=== PATIENT | male | born 1945 | race African-American/Black ===

== ENCOUNTER 2021-06-22 21:59 | Emergency (ER) | payer MEDICARE, BC ==
[~2021-06-22] VITALS: Ht 180.3 cm; Wt 88.3 kg
[~2021-06-22 21:59] MED LIST: ASPI-630 PO; GLUC500T10 PO; INDO75CA10 PO; LISI40TA6 PO; MULT-246 PO
--- NOTE | 2021-06-22 22:16 | RAD ---
STUDY: CT head without contrast INDICATION: Code stroke. Unresponsiveness. Right-sided twitching. COMPARISON: None. TECHNIQUE: Axial CT imaging through the head without the use of intravenous contrast. Sagittal and co regine reformats were obtained. One or more of the following individualized dose reduction techniques were utilized for this examinat ion: 1. Automated exposure control 2. Adjustment of the mA and/or kV according to patient size 3. Use of iterative reconstruction technique. FINDINGS: Partially degraded study on account of motion. Taking the above into consideration, no acute intracranial hemorrhage is identified. No large area of salas-white matter differentiation loss. White matter findings which are nonspecific but most frequen tly on account of chronic microvascular ischemic change. No localized mass effect or midline shift. M ild symmetric prominence of the ventricular system favored secondary to parenchymal volume loss. Intr acranial calcific atherosclerosis. Intact calvarium. IMPRESSION: 1. Mildly degraded study on account of patient motion. No acute intracranial hemorrhage is apparent or CT evidence for an acute cortical infarction. 2. Chronic/senescent observations detailed above. FOR INTERNAL CODING PURPOSES Critical result: Findings discussed with MIGUELINA ARAUJO on 06/22/2021 at 10:14 PM. RESULT CODE: (C) Electronically signed by: YODIT LEHMAN MD (06/22/2021 10:14 PM) [facility]
[2021-06-22] MEDS ORDERED: CONTRAST GIVEN. MC PRN (22:30)
[2021-06-22] MEDS ORDERED: IOHEXOL 350 MG/ML 100 ML VIAL. IV ONE (22:30)
--- NOTE | 2021-06-22 22:41 | PHYS DOC ---
Past History Past Medical History: Bronchitis General Adult EDM: Chief Complaint: ALTERED MENTAL STATUS HPI: HPI: 75-year-old male presents as a code stroke. All history comes from EMS reports. The patient was reported to be walking into the kitchen to get something to eat 1 hour prior to arrival. His family walked into the kitchen and found him down on the ground and not responding. He was breathing and had a pulse but was not able to speak or answer questions. They called 911. The patient appeared to not be using his right side to EMS. He was unable to speak. No other history is available at this time. Review of Systems: Review of Systems: Unable to evaluate due to patient's condition Current Medications: Current Meds: Current Medications Medications (Trade) Dose Ordered Sig/Annie Start Time Stop Time Status Last Admin Dose Admin Info (Do NOT chart on this entry -- for MONITORING) 1 each PRN DAILY PRN 06/22/21 22:30 06/24/21 22:29 Iohexol (Omnipaque 350 Mg/ml) 100 ml 1X ONCE 06/22/21 22:30 06/22/21 22:31 DC 06/22/21 22:19 100 ML Allergies: Allergies: Allergies Coded Allergies Type Severity Reaction Last Updated Verified Penicillins Allergy Intermediate 05/21/14 Yes naproxen Allergy Mild Unknown 05/21/14 Yes Physical Exam: PE: Constitutional: Well developed, well nourished, severe acute distress, non-toxic appearance. [] HENT: Normocephalic, atraumatic, bilateral external ears normal, oropharynx moist, no oral exudates, nose normal. [] Eyes: Right pupil 2 to 3 mm and reactive, left pupil 5 mm nonreactive. [] Neck: Normal range of motion, no tenderness, supple, no stridor. [] Cardiovascular: Heart rate regular rhythm, no murmur [] Lungs & Thorax: Bilateral breath sounds clear to auscultation [] Abdomen: Splotchy abdomen possibly ecchymosis. [] Skin: Warm, dry, no erythema, no rash. [] Back: No obvious signs of trauma. [] Extremities: No obvious signs of trauma [] Neurologic: See NIH stroke scale [] [] Current Patient Data: Labs: Laboratory Tests Test 06/22/21 22:08 Glucose (Fingerstick) 145 mg/dL (70-99) H EKG: EKG: Tachycardia, rate 117, rightward axis, no ST elevation or depression, inverted T waves V2 to V5, A. fib. [] Radiology/Procedures: Radiology/Procedures: [] Impressions: Exam: CTA head and neck INDICATION: Right-sided weakness TECHNIQUE: Sequential axial images through the head and neck obtained following the administration of 74 mL of Isovue-370 IV contrast. Sagittal and coronal reformatted images were reconstructed from the axial data and reviewed. Exposure: One or more of the following in the visualized dose reduction techniques were utilized for this examination: 1. Automated exposure control 2. Adjustment of the MA and/or KV according to patient size 3. Use of iterative of reconstructive technique Comparisons: CT head without contrast same day FINDINGS: CTA NECK: Evaluation of the cervical arterial vasculature is markedly limited secondary to contrast bolus timing. Mild calcified plaque is noted at the origin of the right internal carotid artery. CTA HEAD: Evaluation of intracranial is limited secondary to contrast timing however there remains some diagnostic information. Mild calcified plaque at the cavernous segment of the right internal carotid artery without significant stenosis. Right MCA is patent. Right EVGENY is patent. Mild calcified plaque at the cavernous segment left internal carotid artery without significant stenosis. There is cut off of the left MCA at the distal M1 segment. Left EVGENY is patent. Basilar artery is patent without evidence of stenosis, occlusion or aneurysm. drapery cutter are patent bilaterally. IMPRESSION: Evaluation is limited secondary to contrast bolus timing. 1. Likely large vessel occlusion at the distal M1 segment of the left MCA. 2. Mild plaque at the origin of the right internal carotid artery. 3. Mild calcified plaque at the cavernous segments of the internal carotid arteries bilaterally without significant stenosis. FOR INTERNAL CODING PURPOSES Critical result: Findings discussed with MIGUELINA ARAUJO DO at 06/22/2021 10:44 PM. RESULT CODE: (C) Electronically signed by: Delmi Silva MD (06/22/2021 10:52 PM) LOCATED WITHIN [facility] DICTATED AND SIGNED BY: DELMI SILVA MD DATE: 06/22/21 1739 CC: MIGUELINA ARAUJO DO; AIDA CASILLAS PA ~MTH0 0 Heart Score: C/O Chest Pain: N/A Risk Factors: Risk Factors: DM, Current or recent (<one month) smoker, HTN, HLP, family history of CAD, obesity. Risk Scores: Score 0 - 3: 2.5% MACE over next 6 weeks - Discharge Home Score 4 - 6: 20.3% MACE over next 6 weeks - Admit for Clinical Observation Score 7 - 10: 72.7% MACE over next 6 weeks - Early Invasive Strategies Course & Med Decision Making: Course & Med Decision Making Pertinent Labs and Imaging studies reviewed. (See chart for details) The patient appears to be having a stroke. His CT of the head was negative for acute findings. His CT angiogram of the head and neck does show distal M1 left MCA occlusion. I spoke with the and she has agreed to TPA and transfer to a stroke center. I spoke to [facility] and Dr. Littlejohn man has accepted the patient for transfer. We will lower the patient's blood pressure to 180 and start TPA in the emergency room prior to transfer. He will go by emergent ambulance. The patient's blood pressure has lowered and we are reducing the nicardipine accordingly. The patient is moving his left side more than he was. He still on ly has muscle contraction on the right upper and lower extremity. He did open his eyes to command and look over at the nurse. He still unable to speak. Transport is in route. [] Dragon Disclaimer: Dragnoe Disclaimer: This electronic medical record was generated, in whole or in part, using a voice recognition dictation system. NIH Stroke Scale: NIH Stroke Scale Response (Comments) Value Level of Consciousness: 0 Alert/Responsive 0 LOC Questions: 2 Answers neither correct 2 LOC Commands: 2 Perform neither task 2 Best Gaze: 1 Partial gaze palsy 1 Visual: 1 Partial hemianopia 1 Facial Palsy: 2 Partial paralysis 2 Motor - Left Arm 2 Some effort 2 Motor - Right Arm 3 Limb falls 3 Motor - Left Leg 2 Some effort 2 Motor: Right Leg 3 Limb falls 3 Limb Ataxia: 2 Two limbs 2 Sensory: 1 Mid to moderate loss 1 Best Language: 2 Severe aphasia 2 Dysathria: 2 Severe 2 Extinction and Inattention: 1 One sensory modality 1 Total 26 Departure Departure: Impression: Primary Impression: Arterial ischemic stroke, MCA, left, acute Disposition: 02 SHORT TERM HOSPITAL Condition: GUARDED Referrals: AIDA CASILLAS (PCP) MIGUELINA ARAUJO DO Jun 22, 2021 22:41
[2021-06-22 22:44] LABS: BASO # 0.1 x10^3/uL (0.0-0.2); BASO % 1 % (0-3); EOS # 0.1 x10^3/uL (0.0-0.7); EOS % 1 % (0-3); HEMATOCRIT 49.6 % (39.0-53.0); HEMOGLOBIN 16.3 g/dL (13.0-17.5); LYMPH # 1.3 x10^3/uL (1.0-4.8); LYMPH % 12 % (24-48); MEAN CORPUSCULAR HEMOGLOBIN 30 pg (25-35); MEAN CORPUSCULAR HGB CONC 33 g/dL (31-37); MEAN CORPUSCULAR VOLUME 91 fL (79-100); MONO # 0.7 x10^3/uL (0.0-1.1); MONO % 6 % (0-9); NEUT # 9.1 x10^3uL (1.8-7.7); NEUT % 81 % (31-73); PLATELET COUNT 156 x10^3/uL (140-400); RED BLOOD COUNT 5.43 x10^6/uL (4.30-5.70); RED CELL DISTRIBUTION WIDTH 14.9 % (11.5-14.5); WHITE BLOOD COUNT 11.3 x10^3/uL (4.0-11.0)
--- NOTE | 2021-06-22 22:50 | EKG ---
[address] [id number] Test Date: 2021-06-22 Test Time: 22:41:35 Pat Name: MAEGAN PATEL Department: Room: Gender: M Scientist Engineer: VIKA : [id number] Requested By: MIGUELINA ARAUJO Order Number: [id number] Reading MD: Kiet Brown Measurements Intervals [place] Rate: 117 P: 0 UT: 78 QRS: 104 QRSD: 130 T: 28 QT: 346 QTc: 487 Interpretive Statements ATRIAL FIBRILLATION WITH RVR Electronically Signed On 06-25-2021 15:10:42 WOODYARD OPERATOR by Kiet Brown
--- NOTE | 2021-06-22 22:55 | RAD ---
Exam: CTA head and neck INDICATION: Right-sided weakness TECHNIQUE: Sequential axial images through the head and neck obtained following the administration of 74 mL of Isovue-370 IV contrast. Sagittal and coronal reformatted images were reconstructed from the axial data and reviewed. Exposure: One or more of the following in the visualized dose reduction techniques were utilized for this examination: 1. Automated exposure control 2. Adjustment of the MA and/or KV according to patient size 3. Use of iterative of reconstructive technique Comparisons: CT head without contrast same day FINDINGS: CTA NECK: Evaluation of the cervical arterial vasculature is markedly limited secondary to contrast bolus timin g. Mild calcified plaque is noted at the origin of the right internal carotid artery. CTA HEAD: Evaluation of intracranial is limited secondary to contrast timing however there remains some diagnos tic information. Mild calcified plaque at the cavernous segment of the right internal carotid artery without significa nt stenosis. Right MCA is patent. Right EVGENY is patent. Mild calcified plaque at the cavernous segment left internal carotid artery without significant steno sis. There is cut off of the left MCA at the distal M1 segment. Left EVGENY is patent. Basilar artery is patent without evidence of stenosis, occlusion or aneurysm. elevator conductor are patent bilater ally. IMPRESSION: Evaluation is limited secondary to contrast bolus timing. 1. Likely large vessel occlusion at the distal M1 segment of the left MCA. 2. Mild plaque at the origin of the right internal carotid artery. 3. Mild calcified plaque at the cavernous segments of the internal carotid arteries bilaterally with out significant stenosis. FOR INTERNAL CODING PURPOSES Critical result: Findings discussed with MIGUELINA ARAUJO DO at 06/22/2021 10:44 PM. RESULT CODE: (C) Electronically signed by: Delmi Dorsey MD (06/22/2021 10:52 PM) [facility]
[2021-06-22 22:58] LABS: CALCIUM 8.9 mg/dL (8.5-10.1); GFR 39.6; POTASSIUM 4.6 mmol/L (3.5-5.1)
[2021-06-22] MEDS ORDERED: niCARdipine INJ. IV ONE ×2 (23:02→23:15)
[2021-06-22] MEDS: LABETALOL 20 MG/4 ML DISP.SYRIN. IVP PRN ×2 (23:04→23:37)
[2021-06-22 23:06] LABS: ALBUMIN/GLOBULIN RATIO 1.1 (1.0-1.7); TOTAL BILIRUBIN 0.7 mg/dL (0.2-1.0); TOTAL PROTEIN 7.5 g/dL (6.4-8.2)
[2021-06-22] MEDS ORDERED: IV NORMAL SALINE 250ML 250 ML ONE (23:07)
[2021-06-22 23:19] LABS: INFLUENZA A PATIENT NEGATIVE (NEGATIVE); INFLUENZA B PATIENT NEGATIVE (NEGATIVE)
[2021-06-22] MEDS ORDERED: ALTEPLASE IV ONE ×2 (23:30)
[2021-06-23] MEDS ORDERED: IV NORMAL SALINE 100ML 100 ML IV ONE (00:30)
[2021-06-23] MEDS ORDERED: IV NORMAL SALINE 50ML 50 ML ONE (00:33)
[2021-06-23 00:42] VITALS: BP 158/87
[2021-06-23 01:35] LABS: BILIRUBIN,URINE NEG (NEG); CLARITY,URINE CLEAR; COLOR,URINE YELLOW; GLUCOSE,URINE NEG (NEG)
[2021-06-23 01:36] LABS: BACTERIA,URINE 0 /HPF (0-FEW); NITRITE,URINE NEG (NEG); UROBILINOGEN,URINE 0.2 mg/dL (0.2 mg/dL); WBC,URINE OCC /HPF (0-4)
== END 2021-06-23 00:53 | disposition short-term general hospital (02) ==
LOC: ER 21:59
DX: I63.89 Other cerebral infarction (principal); Z20.822 Contact with and (suspected) exposure to COVID-19; Z88.0 Allergy status to penicillin; Z88.6 Allergy status to analgesic agent
CPT/HCPCS: 36415; 37195; 51702; 70450; 70496; 70498; 80053; 81001; 82947; 84484; 85025; 85610; 85730; 87426; 87804; 93005; 96365; 96366; 96375; 99285; C9803; J2997; J3490; J7050; Q9967; U0003

== ENCOUNTER 2021-07-26 11:45 | Emergency (ER) | payer MEDICARE, BC ==
[~2021-07-26] VITALS: Ht 180.3 cm; Wt 88.3 kg
[2021-07-26 12:00] VITALS: BP 119/61
--- NOTE | 2021-07-26 14:41 | PHYS DOC ---
Past History Past Medical History: Bronchitis Additional Past Medical Histor: Stroke 06/23/2021 (JANICE BARRAGAN APRN) Past Surgical History: Other Additional Past Surgical Histo: Thrombectomy/craniotomy, PEG tube placement (JANICE BARRAGAN APRN) Alcohol Use: None (JANICE BARRAGAN APRN) Adult General Chief Complaint Chief Complaint: OTHER COMPLAINTS HPI HPI Patient is a 75-year-old male who presents to the emergency department concerning medications stuck in his PEG tube. Patient arrives to the emergency department via EMS nut tapper transport, family members at bedside who are primary caregivers related to patient's history of recent CVA approximately 1 month ago with severe cognitive deficits, patient's reports at 8 AM this morning she was crushing medications and pushing through PEG tube when the medications became lodged. Patient's reports trying to dislodge the medications using Coca-Cola. Was unsuccessful, called 911 for transport to the emergency department to assist and freeing the clogged PEG tube. Denies other physical complaints or physical concerns for her . Patient is nonverbal related to CVA. (JANICE BARRAGAN APRN) Review of Systems Review of Systems 14 body systems of review of systems have been reviewed. See HPI for pertinent positives and negative responses, otherwise all other systems are negative, nonpertinent or noncontributory. Constitutional: Negative except as outlined in HPI above. Skin: Negative except as outlined in HPI above. Eyes: Negative except as outlined in HPI above. HENT: Negative except as outlined in HPI above. Respiratory: Negative except as outlined in HPI above. Cardiovascular: Negative except as outlined in HPI above. GI: Negative except as outlined in HPI above. : Negative except as outlined in HPI above. Musculoskeletal: Negative except as outlined in HPI above. Integument: Negative except as outlined in HPI above. Neurologic: Negative except as outlined in HPI above. Endocrine: Negative except as outlined in HPI above. Lymphatic: Negative except as outlined in HPI above. Psychiatric: Negative except as outlined in HPI above. (JANICE BARRAGAN APRN) Allergies Allergies Allergies Coded Allergies Type Severity Reaction Last Updated Verified Penicillins Allergy Intermediate 05/21/14 Yes naproxen Allergy Mild Unknown 05/21/14 Yes (JANICE BARRAGAN APRN) Physical Exam Physical Exam Constitutional: Well developed, well nourished, no acute distress, non-toxic appearance. 75-year-old male is nonverbal otherwise in no apparent distress. HENT: Normocephalic, atraumatic. Eyes: Conjunctiva normal, no discharge. Neck: Normal range of motion, no stridor. Cardiovascular: No cyanosis appreciated, distal cap refill less than 2 seconds. Lungs & Thorax: Patient is in no respiratory distress, no audible adventitious lung sounds appreciated. Abdomen: Nontender, no abnormalities noted. PEG tube located mid left upper quadrant, no drainage from insertion site, no signs of infection, medication impaction visualized within transparent PEG tube. Skin: Warm, dry, no erythema, no rash. Back: No tenderness, no deformities. Extremities: No tenderness, no cyanosis, no clubbing, ROM intact, no edema. Neurologic: Alert and oriented X 3, normal motor function, normal sensory function, no focal deficits noted. Psychologic: Affect normal, judgement normal, mood normal. (JANICE BARRAGAN APRN) Current Patient Data Vital Signs Vital Signs Date Time Temp Pulse Resp B/P (MAP) Pulse Ox O2 Delivery O2 Flow Rate FiO2 07/26/21 12:00 97.4 70 14 119/61 (80) 100 Room Air (JANICE BARRAGAN APRN) EKG EKG [] (JANICE BARRAGAN APRN) Radiology/Procedures Radiology/Procedures [] (JANICE BARRAGAN APRN) Heart Score C/O Chest Pain: No Risk Factors: Risk Factors: DM, Current or recent (<one month) smoker, HTN, HLP, family history of CAD, obesity. Risk Scores: Risk Factors: DM, Current or recent (<one month) smoker, HTN, HLP, family history of CAD, obesity. (JANICE BARRAGAN APRN) Course & Med Decision Making Course & Med Decision Making Pertinent Labs and Imaging studies reviewed. (See chart for details) 75-year-old male, vital signs reviewed, presents emergency department concerning clogged PEG tube. Physical examination reveals what appears to be medication impaction and PEG tube that is visualized through transparency of the tube. With ED nursing staff assistance, PEG tube irrigated with some success, instilled approximately 3 cc of Coca-Cola to assist with medication dislodging. After period of time, impaction of PEG tube was flushed, flushes easily with aspiration of gastric contents., PEG tube remains intact. Patient's who is primary care Dueber is thankful for dislodging of medication infection and PEG tube. Discussed with patient's assuring good flushing during medication administration through PEG tube, reviewed procedure with , patient's who is primary caregiver states she feels comfortable with ongoing medication and PEG tube feedings at home. Discussed keeping follow-up appointments with primary care, return to ER precautions and concerns, patient was discharged home without incident. Discussed with the patient all findings and diagnostic testing as well as the need to follow-up with their primary care provider for further evaluation and treatment or return to the ED if any new or worsening symptoms. Strict return precautions were also discussed at length, the patient voiced understanding and agreement with the discharge planning. The patient was nontoxic in appearance, in no apparent distress, and hemodynamically stable at the time of disposition. (JANICE BARRAGAN APRN) Dragon Disclaimer Dragon Disclaimer This electronic medical record was generated, in whole or in part, using a voice recognition dictation system. (JANICE BARRAGAN APRN) Attending Co-Sign The patient was seen and interviewed as well as examined at the bedside. The chart was reviewed. The case was discussed. Agree with the plan of care. (MIGUELINA ARAUJO DO) Departure Departure: Impression: Primary Impression: PEG tube malfunction Disposition: 01 HOME / SELF CARE / HOMELESS Condition: GOOD Referrals: AIDA CASILLAS (PCP) Additional Instructions: You were seen today in the emergency department for a clogged feeding tube. This was flushed in the emergency department. Please ensure all medications given through the PEG tube are thoroughly flushed. Return to the emergency department for worsening symptoms or other concerns. Thank you for visiting our Emergency Department. It was a pleasure taking care of you today in the emergency department and we appreciate you trusting us with your care. If any additional problems come up don't hesitate to return to visit us. Please follow up with your primary care provider so they can plan additional care if needed and know about the problem that you had. If symptoms worsen come back to the Emergency Department. Any concerning symptoms that start such as chest pain, shortness of air, weakness or numbness on one side of the body, running high fevers or any other concerning symptoms return to the ER. JANICE BARRAGAN APRN Jul 26, 2021 14:40 MIGUELINA ARAUJO DO Jul 27, 2021 10:24
[2021-07-27] MEDS ORDERED: AMLO-308 PO (16:03)
[2021-07-27] MEDS ORDERED: APIX5TAB3 PO (16:03)
[2021-07-27] MEDS ORDERED: LEVO750T5 PO (16:21)
[2021-07-27] MEDS ORDERED: PRED-220 PO (16:21)
[2021-07-27] MEDS ORDERED: INSU100V13 SQ (16:21)
[2021-07-27] MEDS ORDERED: METO50TA6 PO (16:21)
[2021-07-27] MEDS ORDERED: ATORVASTATIN CA80 MG PO (16:21)
[2021-07-27] MEDS ORDERED: DORZ10DR27 RIGHTEYE (16:21)
[2021-07-27] MEDS ORDERED: ASPI-630 PO (16:21)
[2021-07-27] MEDS ORDERED: BRIM5DRO4 RIGHTEYE (16:21)
[2021-07-27] MEDS ORDERED: LIDO700A21 TP (16:21)
[2021-07-27] MEDS ORDERED: DOCU100C28 PO (16:21)
== END 2021-07-26 15:25 | disposition home or self-care (01) ==
LOC: ER 11:45
DX: K94.23 Gastrostomy malfunction (principal); Z88.0 Allergy status to penicillin; Z88.8 Allergy status to other drugs, medicaments and biological substances
CPT/HCPCS: 99282; 99285

== ENCOUNTER 2021-07-27 07:18 | Inpatient (IN) | payer MEDICARE, BC ==
[~2021-07-27] VITALS: Ht 177.8 cm; Wt 77.4 kg
--- NOTE | 2021-07-27 07:27 | PHYS DOC ---
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 Upon ED arrival patient calm but is aphasic-Vohs history unable to be performed.EMR was reviewed and patient was seen in the ED yesterday for clogged PEG tube. Review of Systems: Review of Systems: ROS: Unable to perform due to patient's aphasia Allergies: Allergies: Allergies Coded Allergies Type Severity Reaction Last Updated Verified Penicillins Allergy Intermediate 05/21/14 Yes naproxen Allergy Mild Unknown 05/21/14 Yes Physical Exam: PE: Constitutional: No grimace with palpation, no acute distress, non-toxic appearance. HENT: Normocephalic, atraumatic, Eyes: EOMI, conjunctiva normal, no discharge. Neck: Normal range of motion, supple, Cardiovascular: S1/2 present, regular rhythm Lungs & Thorax:bilateral equal chest rise, no tachypnea or increased work of breathing Abdomen: soft, no tenderness, no distention Skin: Warm, dry, no erythema, no rash. [] Extremities: no cyanosis, no lower extremity edema Neurologic: Alert, follows commands, moves all 4 extremities but does appear weaker on the right side Psychologic: Calm mood, no agitation EKG: EKG: Irregular rhythm concerning for atrial fibrillation at 93 bpm, no axis deviation, QRS 126, QTc 455, T wave inversion 1, 2, V1 2 through V6, no ST elevation or ST depression Radiology/Procedures: Radiology/Procedures: IMAGING REPORT Signed PATIENT: MAEGAN PATEL ACCOUNT: [id number] : 1945 LOCATION: ER AGE: 75 SEX: M EXAM STATUS: REG ER ORD. PHYSICIAN: AIDA ABRAHAM DO REASON: sah, s/p cva 1/3 w/tpa OMNI 350 75ML CREAT 1.8 PROCEDURE: CT ANGIOGRAPHY HEAD AND NECK EXAM: CT angiography of the head and neck with intravenous contrast. HISTORY: Subarachnoid hemorrhage. Stroke. TECHNIQUE: Computed tomographic images of the head and neck were obtained following the administration of intravenous contrast according to angiography protocol. Multiplanar reformatting was performed and three dimensional maximum intensity projection images were obtained. *One or more of the following individualized dose reduction techniques were utilized for this examination: 1. Automated exposure control. 2. Adjustment of the mA and/or kV according to patient size. 3. Use of iterative reconstruction technique. COMPARISON: CTs dated 07/27/2021 and 06/22/2021. FINDINGS: There is decreased attenuation within the left frontal and parietal lobes due to a subacute middle cerebral artery territory infarct. The increased attenuation within the region of infarction due to suspected hemorrhage is once again seen. This may be due to the combination of intraparenchymal and adjacent subarachnoid hemorrhage. There is no mass effect or midline shift. There is no hydrocephalus. There is cerebral volume loss and there are areas of hypodensity within the cerebral white matter due to chronic small vessel disease. There is a common origin of the right innominate and left common carotid arteries, a normal aortic arch branching variant. The aortic arch branch vessel origins are widely patent. There is mild partially calcified atherosclerotic p laque involving the origin and proximal right ICA, with less than 25 percent stenosis. The left carotid bifurcation is widely patent. There is moderate partially calcified atherosclerotic plaque involving the cavernous internal carotid arteries, resulting in 50-69 percent stenosis bilaterally. The previously described left M1 segment is no longer seen. There has been reconstitution of flow within the left middle cerebral artery branches. The right middle cerebral artery, bilateral anterior cerebral arteries and posterior cerebral arteries are patent. There are hypoplastic posterior communicating arteries. The anterior commuting indicating artery is patent. The vertebral arteries are codominant and widely patent. There is biapical pleural parenchymal scarring. There are a few small apical pleural nodules, largest of which measures the right. There are degenerative changes involving the cervical spine. The combination of degenerative changes results in mild right and moderate to severe left foraminal stenosis at C3-C4 and mild left foraminal stenosis at C5-C6 and C6-C7. There is a heterogeneous thyroid containing multiple small nodules and cysts. The size of these lesions favors benignity. There is no suspicious calvarial lesion. There is minimal fluid within the mastoid air cells. There is minimal maxillary sinus mucosal thickening with a tiny left maxillary sinus mucous retention cyst. IMPRESSION: 1. Large left middle cerebral artery subacute infarct, described on prior CTs dating to 06/22/2021. There is slight hyperdensity within the region of infarction due to hemorrhagic transformation of infarction and suspected superimposed subarachnoid blood. This is better characterized and reported on the noncontrast CT performed earlier on the same date. 2. Moderate partially calcified atherosclerotic plaque involving the distal internal carotid arteries, resulting in 50-69 percent stenosis. There is also mild atherosclerotic plaque involving the origin and proximal right ICA without evidence of significant stenosis. 3. Note is made that the previously described left distal M1 segment occlusion is no longer seen. There has been reconstitution of flow within the left middle cerebral artery branches. No large vessel occlusion is seen. 4. Multiple small pulmonary nodules measuring up to 6 mm. In the absence of prior studies to confirm stability, follow-up can be performed in 6-12 months. 5. Heterogeneous thyroid containing multiple small nodules and cysts. The size of these lesions favors benignity. This can be better assessed with a thyroid sonogram. PQRS Compliance Statement - Stenosis calculations for CT, MR and conventional angiography are based upon measurement of the distal ICA diameter in accordance with the NASCET methodology. Stenosis calculations for carotid ultrasound studies are derived from validated velocity criteria which are known to correlate with the NASCET methodology. Electronically signed by: Julia Diaz MD (07/27/2021 9:50 AM) [id number] IMAGING REPORT Signed PATIENT: MAEGAN PATEL ACCOUNT: [id number] : 1945 LOCATION: ER AGE: 75 SEX: M EXAM STATUS: REG ER ORD. PHYSICIAN: AIDA ABRAHAM DO REASON: agitation PROCEDURE: CT HEAD WO CONTRAST FOR INTERNAL CODING PURPOSES Critical result: Findings discussed with AIDA ABRAHAM DO at 07/27/2021 8:14 AM. RESULT CODE: (C) Exam performed: CT scan of the head without contrast. Date of Service: 07/27/2021. Comparison: CT head without contrast from 06/22/2021. More recent imaging from [facility] is not available. Clinical History: Patient is agitated. History of recent large left MCA stroke for which patient was transferred to a Medical Center and was treated. Technique: Helical acquisitions are obtained from the foramen magnum to the vertex without intravenous administration of contrast. Findings: There is a large late subacute/early chronic left MCA infarct. There are areas of subarachnoid hemorrhage within the infarct.The ventricles are midline without evidence of dilatation. Normal salas-white differentiation is maintained elsewhere in the brain. There is no extra axial fluid collection or mass lesion. The visualized portions of the orbits, paranasal sinuses and the mastoid air cells appear clear. The calvarium is intact. Impression: 1. Large late subacute/early chronic left MCA infarct with areas of subarachnoid hemorrhage. This raises suspicion for hemorrhagic conversion of stroke. Comparison with more recent imaging performed at [facility] would be helpful. PQRS Compliance Statement: One or more of the following individualized dose reduction techniques were u tilized for this examination: 1. Automated exposure control 2. Adjustment of the mA and/or kV according to patient size 3. Use of iterative reconstruction technique IMAGING REPORT Signed PATIENT: MAEGAN PATEL ACCOUNT: [id number] : 1945 LOCATION: ER AGE: 75 SEX: M EXAM STATUS: REG ER ORD. PHYSICIAN: AIDA ABRAHAM DO REASON: agitation, pt aphasic PROCEDURE: PORTABLE CHEST 1V Exam Date: 07/27/2021 8:21 AM XR CHEST 1V Indication: Reason: agitation, pt aphasic / Spl. Instructions: / History: . FINDINGS/ IMPRESSION: The cardiac silhouette is enlarged. Prominent interstitial markings bilaterally are nonspecific and could represent atelectasis, scarring, interstitial edema, or infection. No pleural effusion or pneumothorax. Electronically signed by: Ernestina Souza MD (07/27/2021 9:11 AM) [facility] DICTATED AND SIGNED BY: ERNESTINA SOUZA MD DATE: 07/27/21905 CC: AIDA CASILLAS; AIDA ABRAHAM DO ~MTH0 0 Heart Score: C/O Chest Pain: N/A Risk Factors: Risk Factors: DM, Current or recent (<one month) smoker, HTN, HLP, family history of CAD, obesity. Risk Scores: Score 0 - 3: 2.5% MACE over next 6 weeks - Discharge Home Score 4 - 6: 20.3% MACE over next 6 weeks - Admit for Clinical Observation Score 7 - 10: 72.7% MACE over next 6 weeks - Early Invasive Strategies Course & Med Decision Making: Course & Med Decision Making Pertinent Labs and Imaging studies reviewed. (See chart for details) Concern for agitation that resolved prior to ED arrival. I spoke to Dr. Capone, neurology at who reviewed today's images in the emergency department compared to prior admission in June of this year. Patient s/p clot retrieval such that post-procedure pt did have petechial hemolrrhgea/bleeding in region of the left MCA infarct. Dr. Capone recommends to hold patient's Eliquis and aspirin for the next [address] head before reinstating these medications. Dr. Capone does not think this is new active bleeding after reviewing the images. Patient's blood pressures have been normal range. Patient has chronic kidney disease and labs show elevated liver enzymes. Admit to medicine for further medical management. Patient's informs me that he is a DNR CODE STATUS. Patient stable at time of admission. I have spoken with the patient and/or caregivers. I have explained the p atient's condition, diagnosis and treatment plan based on the information available to me at this time. I have answered the patient's and/or caregivers questions and answered any concerns. The patient and/or caregivers have as good an understanding of the patient's diagnosis, condition and treatment plan as can be expected at this point. The patient has been stabilized within the capability of the emergency department. The patient will be transported for further care and management or will be moved to an observation or inpatient service. I have communicated with the staff or medical practitioner taking over this patient's care. Eileen Disclaimer: Dragnoe Disclaimer: This electronic medical record was generated, in whole or in part, using a voice recognition dictation system. Departure Departure: Impression: Primary Impression: Agitation Additional Impressions: Subarachnoid hemorrhage CKD (chronic kidney disease) Elevated liver enzymes Disposition: ADMITTED INPATIENT Admitting Physician: Ishmael Wells Condition: STABLE Referrals: AIDA CASILLAS (PCP) AIDA ABRAHAM DO Jul 27, 2021 07:27
--- NOTE | 2021-07-27 07:51 | EKG ---
[address] [address] Test Date: 2021-07-27 Test Time: 07:40:12 Pat Name: MAEGAN PATEL Department: Room: Gender: M Administrative Services Specialist: CLAIR : 1945 Requested By: AIDA ABRAHAM Order Number: [id number] Reading MD: Main Galvez MD Measurements Intervals [place] Rate: 93 P: TN: QRS: 80 QRSD: 126 T: 205 QT: 364 QTc: 455 Interpretive Statements ATRIAL FIBRILLATION CONSIDER ANTEROLATERAL ISCHEMIA CONSIDER RVH Electronically Signed On 07-27-2021 9:22:47 INK GRINDER by Main Galvez MD
[2021-07-27 08:09] LABS: BASO # 0.1 x10^3/uL (0.0-0.2); BASO % 0 % (0-3); EOS # 0.1 x10^3/uL (0.0-0.7); EOS % 1 % (0-3); HEMATOCRIT 44.3 % (39.0-53.0); HEMOGLOBIN 13.8 g/dL (13.0-17.5); LYMPH # 1.3 x10^3/uL (1.0-4.8); LYMPH % 8 % (24-48); MEAN CORPUSCULAR HEMOGLOBIN 29 pg (25-35); MEAN CORPUSCULAR HGB CONC 31 g/dL (31-37); MEAN CORPUSCULAR VOLUME 93 fL (79-100); MONO # 0.8 x10^3/uL (0.0-1.1); MONO % 5 % (0-9); NEUT # 13.5 x10^3uL (1.8-7.7); NEUT % 85 % (31-73); PLATELET COUNT 306 x10^3/uL (140-400); RED BLOOD COUNT 4.78 x10^6/uL (4.30-5.70); RED CELL DISTRIBUTION WIDTH 14.8 % (11.5-14.5); WHITE BLOOD COUNT 15.9 x10^3/uL (4.0-11.0)
[2021-07-27 08:20] LABS: CALCIUM 8.9 mg/dL (8.5-10.1); CREATININE 1.8 mg/dL (0.7-1.3); GFR 44.7; POTASSIUM 5.4 mmol/L (3.5-5.1)
--- NOTE | 2021-07-27 08:24 | RAD ---
FOR INTERNAL CODING PURPOSES Critical result: Findings discussed with AIDA ABRAHAM DO at 07/27/2021 8:14 AM. RESULT CODE: (C) Exam performed: CT scan of the head without contrast. Date of Service: 07/27/2021. Comparison: CT head without contrast from 06/22/2021. More recent imaging fr [facility] is not available. Clinical History: Patient is agitated. History of recent large left MCA stroke for which patient was transferred to a Medical Center and was treated. Technique: Helical acquisitions are obtained from the foramen magnum to the vertex without intravenou s administration of contrast. Findings: There is a large late subacute/early chronic left MCA infarct. There are areas of subarachnoid hemorr ayana within the infarct.The ventricles are midline without evidence of dilatation. Normal salas-white differentiation is maintained elsewhere in the brain. There is no extra axial fluid collection or ma ss lesion. The visualized portions of the orbits, paranasal sinuses and the mastoid air cells appear clear. The calvarium is intact. Impression: 1. Large late subacute/early chronic left MCA infarct with areas of subarachnoid hemorrhage. This thompson ses suspicion for hemorrhagic conversion of stroke. Comparison with more recent imaging performed at [facility] would be helpful. PQRS Compliance Statement: One or more of the following individualized dose reduction techniques were utilized for this examinat ion: 1. Automated exposure control 2. Adjustment of the mA and/or kV according to patient size 3. Use of iterative reconstruction technique Electronically signed by: Neris Nava MD (07/27/2021 8:21 AM) [facility]
[2021-07-27 08:33] LABS: ALBUMIN 2.3 g/dL (3.4-5.0); ALBUMIN/GLOBULIN RATIO 0.5 (1.0-1.7); TOTAL BILIRUBIN 0.5 mg/dL (0.2-1.0)
[2021-07-27] MEDS ORDERED: IOHEXOL 350 MG/ML 100 ML VIAL. IV ONE (08:45)
[2021-07-27] MEDS ORDERED: IV NORMAL SALINE 1,000ML 1,000 ML IV ONE (08:45)
--- NOTE | 2021-07-27 09:13 | RAD ---
Exam Date: 07/27/2021 8:21 AM XR CHEST 1V Indication: Reason: agitation, pt aphasic / Spl. Instructions: / History: . FINDINGS/ IMPRESSION: The cardiac silhouette is enlarged. Prominent interstitial markings bilaterally are nonspecific and could represent atelectasis, scarring, interstitial edema, or infection. No pleural effusion or pneu mothorax. Electronically signed by: Damion Souza MD (07/27/2021 9:11 AM) [facility]
--- NOTE | 2021-07-27 09:53 | RAD ---
EXAM: CT angiography of the head and neck with intravenous contrast. HISTORY: Subarachnoid hemorrhage. Stroke. TECHNIQUE: Computed tomographic images of the head and neck were obtained following the administratio n of intravenous contrast according to angiography protocol. Multiplanar reformatting was performed a nd three dimensional maximum intensity projection images were obtained. *One or more of the following individualized dose reduction techniques were utilized for this examina tion: 1. Automated exposure control. 2. Adjustment of the mA and/or kV according to patient size. 3. Use of iterative reconstruction technique. COMPARISON: CTs dated 07/27/2021 and 06/22/2021. FINDINGS: There is decreased attenuation within the left frontal and parietal lobes due to a subacute middle cerebral artery territory infarct. The increased attenuation within the region of infarction due to suspected hemorrhage is once again seen. This may be due to the combination of intraparenchyma l and adjacent subarachnoid hemorrhage. There is no mass effect or midline shift. There is no hydroce phalus. There is cerebral volume loss and there are areas of hypodensity within the cerebral white matter due to chronic small vessel disease. There is a common origin of the right innominate and left common carotid arteries, a normal aortic ar ch branching variant. The aortic arch branch vessel origins are widely patent. There is mild partiall y calcified atherosclerotic plaque involving the origin and proximal right ICA, with less than 25 per cent stenosis. The left carotid bifurcation is widely patent. There is moderate partially calcified atherosclerotic plaque involving the cavernous internal carotid arteries, resulting in 50-69 percent stenosis bilaterally. The previously described left M1 segment is no longer seen. There has been reconstitution of flow within the left middle cerebral artery branc hes. The right middle cerebral artery, bilateral anterior cerebral arteries and posterior cerebral ar teries are patent. There are hypoplastic posterior communicating arteries. The anterior commuting ind icating artery is patent. The vertebral arteries are codominant and widely patent. There is biapical pleural parenchymal scarri ng. There are a few small apical pleural nodules, largest of which measures the right. There are dege nerative changes involving the cervical spine. The combination of degenerative changes results in mil d right and moderate to severe left foraminal stenosis at C3-C4 and mild left foraminal stenosis at C 5-C6 and C6-C7. There is a heterogeneous thyroid containing multiple small nodules and cysts. The siz e of these lesions favors benignity. There is no suspicious calvarial lesion. There is minimal fluid within the mastoid air cells. There is minimal maxillary sinus mucosal thickening with a tiny left ma xillary sinus mucous retention cyst. IMPRESSION: 1. Large left middle cerebral artery subacute infarct, described on prior CTs dating to 06/22/2021. The re is slight hyperdensity within the region of infarction due to hemorrhagic transformation of infarc tion and suspected superimposed subarachnoid blood. This is better characterized and reported on the noncontrast CT performed earlier on the same date. 2. Moderate partially calcified atherosclerotic plaque involving the distal internal carotid arteries , resulting in 50-69 percent stenosis. There is also mild atherosclerotic plaque involving the origin and proximal right ICA without evidence of significant stenosis. 3. Note is made that the previously described left distal M1 segment occlusion is no longer seen. The re has been reconstitution of flow within the left middle cerebral artery branches. No large vessel o cclusion is seen. 4. Multiple small pulmonary nodules measuring up to 6 mm. In the absence of prior studies to confirm stability, follow-up can be performed in 6-12 months. 5. Heterogeneous thyroid containing multiple small nodules and cysts. The size of these lesions favor s benignity. This can be better assessed with a thyroid sonogram. PQRS Compliance Statement - Stenosis calculations for CT, MR and conventional angiography are based u rhiannon measurement of the distal ICA diameter in accordance with the NASCET methodology. Stenosis calcu lations for carotid ultrasound studies are derived from validated velocity criteria which are known t o correlate with the NASCET methodology. Electronically signed by: Julia Diaz MD (07/27/2021 9:50 AM) [id number]
[2021-07-27 10:25] LABS: % ATYL 3 % (0-0); % BANDS 1 % (0-9); % EOS 3 % (0-5); % LYMPHS 12 % (24-48); % MONOS 5 % (0-10); % SEGS 76 % (35-66)
[2021-07-27 10:34] LABS: PLATELET CLUMP PRESENT; PLT ESTIMATE ADEQUATE (ADEQUATE)
[2021-07-27 11:57] LABS: INFLUENZA A PATIENT NEGATIVE (NEGATIVE); INFLUENZA B PATIENT NEGATIVE (NEGATIVE)
--- NOTE | 2021-07-27 12:22 | HP ---
DATE OF SERVICE: 07/27/2021 ADMIT DATE: 07/27/2021 ATTENDING PHYSICIAN: Dr. Wells. CHIEF COMPLAINT: Agitation and stroke symptoms. HISTORY OF PRESENT ILLNESS: The patient is a 75-year-old gentleman who had an extensive stroke on 06/22/2021. It involved the middle cerebral artery distribution on the left side. He has had associated right hemiparesis and expressive aphasia. The stroke is completed. Evidently, he went to [facility]. He was transferred urgently. He did undergo either a TPA therapy and/or thrombectomy. I am in the process of getting those records. Regardless, it was unsuccessful. The stroke is completed. He has a repeat CT scan, which showed a small petechial hemorrhage and subarachnoid hemorrhage without a midline shift. He has had a significant stroke and encephalomalacia involving the entire left temporal lobe. The patient is aphasic. He has been cared for at home. Unfortunately, he has been at [facility] for several weeks and sent to a rehab facility in [place], [place]. He just went home yesterday, he has been home for 24 hours. They have already made two ER visits. He has a feeding tube in his stomach. PAST MEDICAL HISTORY: Significant for the stroke. He has essential hypertension, placement of feeding tube. He has significant and complete aphasia. ALLERGIES: HE HAS ALLERGIES TO PENICILLIN AND NAPROSYN, EXACT REACTION IS UNCLEAR. CURRENT MEDICATIONS: Medicines at home include lisinopril, tube feedings, aspirin daily, glucosamine and multivitamin. SOCIAL HISTORY: He is a nonsmoker, nondrinker. FAMILY HISTORY: Unobtainable. REVIEW OF SYSTEMS: Unobtainable due to the patient's current condition. PHYSICAL EXAMINATION: GENERAL: When I saw him, this is a bedridden elderly gentleman who is nonverbal. VITAL SIGNS: Initial vital signs showed a blood pressure of 141/59, pulse is 92 and regular. He is afebrile. Oxygen saturation 100% on room air. HEENT: Head is without trauma. Pupils are reactive. Sclerae nonicteric. Oropharynx clear. There is no facial droop. NECK: Supple, no bruits. LUNGS: Otherwise clear. CARDIOVASCULAR: Showed regular heart tones. No gallops. ABDOMEN: Soft. Feeding tube is in place, it is clean at the insertion site. EXTREMITIES: Show right-sided hemiparesis. NEUROLOGIC: The patient is completely aphasic. He is bedridden. SKIN: Warm and dry. PERTINENT LABORATORY STUDIES: His hemoglobin is 13.8 g/dL, white count 15,900. Sodium 141, potassium 5.4 mEq, creatinine is 1.8 mg percent. Transaminases are elevated. Troponin is 70. BNP is 3900. ASSESSMENT: 1. A 75-year-old gentleman with a completed stroke with associated aphasia and right hemiparesis. 2. Generalized debilitation, inability to care for him at home. 3. History of feeding tube with recent ER visit to open the feeding tube. 4. Essential hypertension. 5. Elevated transaminases, etiology is unclear. 6. Chronic kidney disease stage 3. Creatinine is 1.8 mg percent. I do not know his baseline. PLAN: 1. Admit to our inpatient unit. 2. He is a DNR per advanced directive. 3. Continue tube feeding. 4. Physical therapy recommendation. 5. Long discussion with the and the ED, he needs to go to a residential, but he is reluctant at this time. We shall see what he decides in the near future. CHARLENE/GRICEL DR: Meena TID: [id number] CC: KYAW SANTANA
[2021-07-27 15:07] VITALS: BP 133/66
[2021-07-27] MEDS ORDERED: APIX5TAB3 PO (16:03)
[2021-07-27] MEDS ORDERED: AMLO-308 PO (16:03)
[2021-07-27] MEDS ORDERED: PRED-220 PO (16:21)
[2021-07-27] MEDS ORDERED: LEVO750T5 PO (16:21)
[2021-07-27] MEDS ORDERED: DORZ10DR27 RIGHTEYE (16:21)
[2021-07-27] MEDS ORDERED: LIDO700A21 TP (16:21)
[2021-07-27] MEDS ORDERED: ATORVASTATIN CA80 MG PO (16:21)
[2021-07-27] MEDS ORDERED: ASPI-630 PO (16:21)
[2021-07-27] MEDS ORDERED: INSU100V13 SQ (16:21)
[2021-07-27] MEDS ORDERED: BRIM5DRO4 RIGHTEYE (16:21)
[2021-07-27] MEDS ORDERED: DOCU100C28 PO (16:21)
[2021-07-27] MEDS ORDERED: METO50TA6 PO (16:21)
[2021-07-27 20:27] VITALS: BP 154/80
[2021-07-27 23:19] VITALS: BP 164/81
[2021-07-28 05:53] VITALS: BP 148/85
[2021-07-28] MEDS ORDERED: DORZOLAMIDE/TIMOLOL 2%/0.5% OPHTH SOLUTION 10ML BOTTLE. OU PRN (11:15)
--- NOTE | 2021-07-28 11:15 | PN ---
DATE: 07/28/2021 ATTENDING PHYSICIAN: Dr. Wells. SUBJECTIVE: Nonverbal. OBJECTIVE FINDINGS: VITAL SIGNS: His blood pressure this morning is 148/85 mmHg, pulse is 91 and regular. He is afebrile. Oxygen saturation 96% on room air. HEENT: Head is without trauma. Pupils are reactive. The sclerae are nonicteric. The oropharynx is clear. There are no lesions. NECK: Supple. No stridor. LUNGS: Good breath sounds. CARDIOVASCULAR: Showed regular heart tones. No gallops. ABDOMEN: Soft. PEG site is clean. EXTREMITIES: Showed significant right sided hemiparesis. His right hand is nonfunctioning and there is some contractions noted of his fingers. NEUROLOGIC: The patient is aphasic. ASSESSMENT: 1. A 75-year-old gentleman with a completed stroke involving the left middle cerebral artery distribution involving the entire left temporal lobe and beyond. 2. Associated encephalomalacia. 3. Expressive aphasia. 4. Dysphagia with PEG tube. 5. Essential hypertension. 6. Generalized debilitation. 7. Chronic kidney disease stage 3. PLAN: 1. We got his Glucerna regimen. We will start tube feedings as prescribed. 2. Recs per physical and occupational therapy. 3. The bottom line is that he needs fdc care. His is unrealistic and thinks that she can take care of him. Whether or not she will agree to a fdc remains to be seen. We will have disease case manager reach out to her. YOANNA DR: Meena TID: [id number] CC: KYAW SANTANA
[2021-07-28 11:23] VITALS: BP 102/68
[2021-07-28 15:02] VITALS: BP 129/77
[2021-07-28 20:24] VITALS: BP 137/88
[2021-07-28] MEDS: METOPROLOL TART IMMED RELEASE 50 MG TABLET PO SCH (21:46)
[2021-07-29 06:24] VITALS: BP 122/73
[2021-07-29] MEDS: METOPROLOL TART IMMED RELEASE 50 MG TABLET PO SCH ×4 (09:00→21:37)
[2021-07-29] MEDS ORDERED: LISINOPRIL 20 MG TABLET PO SCH (09:00)
[2021-07-29] MEDS: LIDOCAINE (700MG/PATCH) PATCH. TP SCH ×2 (09:00→10:14)
[2021-07-29] MEDS: predniSONE 10 MG TABLET. PO SCH ×2 (09:00→10:19)
[2021-07-29 11:00] VITALS: BP 127/76
[2021-07-29 11:36] LABS: BASO % 0 % (0-3); EOS # 0.1 x10^3/uL (0.0-0.7); EOS % 1 % (0-3); HEMATOCRIT 45.2 % (39.0-53.0); HEMOGLOBIN 14.4 g/dL (13.0-17.5); LYMPH # 1.4 x10^3/uL (1.0-4.8); LYMPH % 12 % (24-48); MEAN CORPUSCULAR HEMOGLOBIN 29 pg (25-35); MEAN CORPUSCULAR HGB CONC 32 g/dL (31-37); MEAN CORPUSCULAR VOLUME 91 fL (79-100); MONO # 0.8 x10^3/uL (0.0-1.1); MONO % 7 % (0-9); NEUT # 9.9 x10^3uL (1.8-7.7); NEUT % 81 % (31-73); PLATELET COUNT 355 x10^3/uL (140-400); RED BLOOD COUNT 4.95 x10^6/uL (4.30-5.70); RED CELL DISTRIBUTION WIDTH 14.8 % (11.5-14.5); WHITE BLOOD COUNT 12.3 x10^3/uL (4.0-11.0)
[2021-07-29 11:41] LABS: CALCIUM 8.7 mg/dL (8.5-10.1); CREATININE 2.1 mg/dL (0.7-1.3); GFR 37.4; POTASSIUM 4.6 mmol/L (3.5-5.1)
[2021-07-29 14:52] VITALS: BP 121/74
--- NOTE | 2021-07-29 17:12 | RAD ---
EXAM: Abdomen and pelvis CT without intravenous contrast. HISTORY: Nephrolithiasis. Renal insufficiency. TECHNIQUE: Computed tomographic images of the abdomen and pelvis were obtained without contrast. Mult iplanar reformatting was performed. *One or more of the following individualized dose reduction techniques were utilized for this examina tion: 1. Automated exposure control. 2. Adjustment of the mA and/or kV according to patient size. 3. Use of iterative reconstruction technique. COMPARISON: None. FINDINGS: Evaluation of the lower thorax demonstrates a large calcified granuloma within the anterior right lung base. No suspicious noncalcified nodule is seen. There is right-sided gynecomastia. There is no infiltrate or pleural effusion. No hepatic lesion is seen on this noncontrast exam. The gallbladder, pancreas, spleen and adrenal gla nds are unremarkable. There is no appendicitis. There is no bowel obstruction. There is chronic diver ticulosis. There is formed stool within the rectal vault. There is a gastrostomy tube in expected pos ition. There is right greater than left renal atrophy. There are 6 mm right and 5 mm left nonobstructing rebeca al stones. There is no hydronephrosis. There is a large stone within the right bladder base measuring 3.1 cm. The aorta is normal in caliber. There is no lymphadenopathy. There are degenerative changes involving the cervical spine and bony pelvis. 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 IMPRESSION: 1. Bilateral nephrolithiasis. There is no evidence of hydronephrosis. 2. Large bladder stone. 3. Colonic diverticulosis. 4. Large amount stool within the rectal vault. Correlate for constipation. Electronically signed by: Julia Diaz MD (07/29/2021 5:10 PM) [id number]
[2021-07-29 20:58] VITALS: BP 115/62
[2021-07-29] MEDS: APIXABAN 5 MG TABLET. PO SCH ×2 (21:00→21:36)
[2021-07-29] MEDS: BRIMONIDINE 0.2% OPHTH SOLUTION 5ML BOTTLE. OU SCH (21:00)
--- NOTE | 2021-07-30 00:18 | CONS ---
DATE OF CONSULTATION: 07/29/2021 REFERRING PHYSICIAN: Dr. Wells. REASON FOR CONSULTATION: Recent stroke. HISTORY OF PRESENT ILLNESS: This is a 75-year-old right-handed male who was admitted through Emergency Room after he presented with history of acute stroke diagnosed in 06/22/2021 resulted into right hemiparesis due to large infarct in the distribution of left middle cerebral artery. As a result, he became aphasic of motor type. He was transferred to [facility] for further intervention. According to the information available at this time that intervention, whether it was with CVA versus mechanical intervention or tremble thrombectomy with no successful procedure accordingly. However, an official documentation has been pending and additional data from [facility] has been pending. In Emergency Room, his initial nonenhanced CT scan revealed large subacute or chronic left MCA infarct with subarachnoid hemorrhage described as petechial hemorrhage. On clinical ground, the patient presented to Emergency Room with dense right hemiparesis and aphasia. The patient is unable to provide any information regarding; however, he was able to move his head as a yes or no answer. The nursing staff told me the patient has been depressed and he refused to take his medication through the feeding tube. After I talked to him, he agreed to continue taking his medication and nutrition through the feeding tube. I did call the nurse who start feeding him without any objections. PAST MEDICAL HISTORY: Significant for stroke as described above, hypertension, significant dysphagia, required placement of a feeding tube, history of atrial fibrillation, peripheral neuropathy, hyperlipidemia, hypertension, GERD, gout, cataracts and hyperglycemia, and glaucoma. PAST SURGICAL HISTORY: Positive for right rotator cuff repair and feeding tube placement. FAMILY HISTORY: Noncontributory. SOCIAL HISTORY: The patient is a nonsmoker or alcohol drinker. CURRENT MEDICATIONS: Losartan, potassium 100 mg daily, amlodipine 10 mg p.o. daily, Levaquin 750 mg q. 48 hours p.o., Colace 100 mg daily p.r.n. for constipation, aspirin 81 mg daily, Alphagan eyedrops for glaucoma, Eliquis 5 mg b.i.d., prednisone 10 mg daily, aspirin, Lidoderm 1 patch daily, metoprolol 50 mg b.i.d., and eyedrops timolol b.i.d. bilaterally. ALLERGIES: PENICILLIN AND NAPROXEN. REVIEW OF SYSTEMS: A 10-point review of system was performed as mentioned above, presented with right hemiparesis and aphasia. PHYSICAL EXAMINATION: GENERAL: Well-developed, well-nourished male in no acute distress. He weighs 77 kilos. VITAL SIGNS: Blood pressure 121/74, respiratory rate 18, pulse is 95, irregularly irregular. Oxygen saturation 99% on room air. HEENT: Normocephalic, atraumatic, otherwise unremarkable. NECK: Supple, negative for carotid bruit, lymphadenopathy or thyromegaly. LUNGS: Clear to A and P. CARDIOVASCULAR: Irregular regular rhythm. Normal S1, S2. ABDOMEN: Soft. Bowel sounds positive. EXTREMITIES: Negative for cyanosis, clubbing or edema. NEUROLOGIC: Mental status: The patient is aphasic due to recent stroke. He follows one-step commands. His comprehension appeared to be intact. Cranial nerves: Pupils are equal and reactive to light and accommodation. The extraocular movements are intact. There is no nystagmus. There is mild facial asymmetry on the right side. Gag reflex is weak. Hearing appeared to be intact. The patient protrudes his tongue in the midline without fasciculation or atrophy. Motor exam: No focal muscle bulk wasting. The patient had right hemiparesis of the right upper and lower extremities. Tone is normal. Sensory examination revealed diminished pinprick and light touch senses over the right upper and lower extremities and face. Deep tendon reflexes were symmetric and hypoactive with hypoactive. Gait not tested. DIAGNOSTIC DATA: A nonenhanced head CT scan as described above in history of present illness. A CT angio of the neck and brain revealed large left middle cerebral artery subacute infarct with petechial hemorrhage or transformation of infarction and suspected superimposed subarachnoid blood. Atherosclerotic plaque in the distal carotid arteries with stenosis of 50-69%. Mild atherosclerotic plaque at the origin of the proximal right internal carotid artery. Multiple small pulmonary nodules were also noted and multiple small nodules and possible cyst in the thyroid. Abdomen and pelvis CT scan revealed bilateral nephrolithiasis and large bladder stone with colonic diverticulosis. Chest x-ray revealed enlarged heart with interstitial marking bilaterally, may represent interstitial edema versus infection. LABORATORY DATA: CBC revealed blood cells of 12.3 thousand, hemoglobin 14.4, hematocrit 45.2, platelet count 355,000. Chemistry revealed sodium of 142, potassium 4.6, chloride 108, CO2 of 22, BUN 60, creatinine 2.1, glucose 193, calcium 8.7. Serology is negative for rapid COVID-19 test. IMPRESSION: 1. Large left middle cerebral artery infarct resulted in aphasia and dense right hemiparesis with petechial hemorrhage in the subarachnoid. 2. Multiple risk factors for stroke include hypertension, hyperlipidemia and hyperglycemia. 3. Atrial fibrillation. 4. Leukocytosis represent systemic infections. 5. Chronic kidney disease and nephrolithiasis, diverticulosis, thyroid nodules, and possible pulmonary atelectasis versus infection and diet-controlled hyperglycemia. RECOMMENDATIONS: 1. Continue with current management initiated by Dr. Wells. 2. Agree with stroke rehabilitation including PT, OT, and speech therapy. LORETTA/LATASHA DR: Carmencita TID: [id number]
--- NOTE | 2021-07-30 02:37 | PN ---
DATE: 07/29/2021 SUBJECTIVE: The patient is resting, slightly propped up in bed, in no apparent distress. He is unfortunately aphasic and has right-sided hemiplegia. He has also a percutaneous endoscopic gastrostomy tube in place. Nursing staff stated that the patient is noncooperative and refusing his medication and also his tube feeding. He was actually being combative with the one of the nursing staff. PHYSICAL EXAMINATION: GENERAL: When I examined him this afternoon, he looked well and was clearly in no apparent respiratory distress. There was no pallor, jaundice, cyanosis. No lymphadenopathy, no thyromegaly, no jugular venous distention. No lower limb edema. VITAL SIGNS: His heart rate was 95, blood pressure was 121/74, temperature was 96.5, respiratory rate was 18 and oxygen saturation was 99%. HEAD, EYES, EARS, NOSE AND THROAT: Normocephalic, atraumatic. NECK: Supple. HEART: Showed normal first and second heart sounds. No gallop, rub or murmur. CHEST: Clear to auscultation, no crepitation or rhonchi. ABDOMEN: Distended, soft with a gastrostomy tube in place. There is no guarding or rigidity. No organomegaly. All hernial orifices intact. Bowel sounds normal. NEUROLOGIC: He is awake, alert, aphasic. He has flaccid right-sided hemiplegia and dysphagia. LABORATORY DATA: As of this morning showed a white cell count 12,300, hemoglobin 14, hematocrit 45, MCV 91, platelet count 355,000. His chemistry showed a serum sodium 142, potassium 4.6, chloride 108, bicarbonate 22, anion gap of 12, BUN 60, creatinine 2.1. Estimated GFR was 37 mL per minute. His glucose 193, calcium was 8.7. His prothrombin time, INR and APTT slightly elevated. His coronavirus by PCR was negative. His influenza A and B were negative. His chest x-ray showed the cardiac silhouette is enlarged, prominent interstitial markings bilaterally nonspecific and could represent atelectasis, scarring, interstitial edema or infection. No pleural effusion or pneumothorax. CT scan of the head showed that there is a large late subacute early chronic left middle cerebral artery infarct. There are areas of subarachnoid hemorrhage within the infarct. The ventricles are midline without evidence of dilatation, normal salas-white differentiation is maintained elsewhere in the brain. There is no extraaxial fluid collection, or mass effect. The visualized portion of the orbits, paranasal sinuses and mastoid air cells appears normal and clear. The calvarium is intact. IMPRESSION AND PLAN: The impression is that the patient has large late subacute early chronic left middle cerebral artery infarct with areas of subarachnoid hemorrhage and this raises suspicion of hemorrhagic conversion of the stroke. Comparison with more recent imaging performed at the medical center will be helpful. I reconciled his CT angio of the head and neck, showed the patient has again a large left middle cerebral artery subacute infarct described in prior CT dated 06/22/2021. There is slight hyperdensity within the region of the infarction due to hemorrhagic transformation infarction and suspected superimposed subarachnoid blood. This is better characterized and reported for a noncontrasted CT performed earlier on the same day. Has moderate partially calcified atherosclerotic plaque involving the distal internal carotid arteries resulting in 50-69% stenosis. There is also mild atherosclerotic plaque involving the origin and proximal right internal carotid artery without evidence of significant stenosis. Note is made that the previously described left distal M1 segment occlusion is no longer seen. There has been reconstitution of flow within the left middle cerebral artery branches. No large vessel occlusion is seen. Multiple small pulmonary nodules measuring up to 6 mm and the absence of prior studies to confirm stability to followup can be performed in 6-12 months. Heterogenous thyroid containing multiple small nodules and cyst. The size of this lesion favors a benignity that can be better assessed with a thyroid sonogram. I reconciled all his medication; however, I am not sure about his apixaban. I would probably hold apixaban for now given that the patient has . I will get some more information from [facility] and talk to the family to see if he is really back on apixaban. JUAN/SRAVANTHI DR: Jamil TID: [id number]
[2021-07-30 05:54] VITALS: BP 130/75
[2021-07-30 06:23] LABS: HEMOGLOBIN 14.4 g/dL (13.0-17.5); RED BLOOD COUNT 4.89 x10^6/uL (4.30-5.70); RED CELL DISTRIBUTION WIDTH 14.8 % (11.5-14.5); WHITE BLOOD COUNT 11.3 x10^3/uL (4.0-11.0)
[2021-07-30 06:39] LABS: ALBUMIN 2.5 g/dL (3.4-5.0); ALBUMIN/GLOBULIN RATIO 0.6 (1.0-1.7); CALCIUM 8.5 mg/dL (8.5-10.1); GFR 39.6; POTASSIUM 4.9 mmol/L (3.5-5.1); TOTAL PROTEIN 6.4 g/dL (6.4-8.2)
[2021-07-30] MEDS ORDERED: VALSARTAN PO SCH (09:00)
[2021-07-30] MEDS ORDERED: levoFLOXacin 750 MG TABLET PO SCH (09:00)
[2021-07-30] MEDS ORDERED: AMLODIPINE PO SCH (09:00)
[2021-07-30] MEDS: LIDOCAINE (700MG/PATCH) PATCH. TP SCH (09:00)
--- NOTE | 2021-07-30 09:36 | PN ---
DATE: 07/30/2021 SUBJECTIVE: There are no significant neurological changes since admission. The patient continues to be aphasic and has right hemiparesis secondary to recent stroke diagnosed in 06/2021 that resulted in right hemiparesis, aphasia and dysphagia, required a feeding tube placement. OBJECTIVE: GENERAL: Well-developed, well-nourished -[place] male in no acute distress. VITAL SIGNS: Blood pressure 130/75, respiratory rate 18, pulse is 91, regular and oxygen saturation is 100% on room air. HEENT: Normocephalic, atraumatic, otherwise, unremarkable. NECK: Supple, negative for carotid bruit, lymphadenopathy or thyromegaly. LUNGS: Clear to A and P. CARDIOVASCULAR: Regular rhythm. Normal S1, S2. ABDOMEN: Soft. Bowel sounds positive. EXTREMITIES: Negative for cyanosis, clubbing or pedal edema. NEUROLOGIC: Mental status: The patient is aphasic. Cranial nerves are grossly intact. Motor examination revealed right hemiparesis and right hemisensory deficits. Deep tendon reflexes were symmetric and hypoactive with absent Achilles responses. Gait: Unsteady stance. LABORATORY DATA: CBC revealed blood cells of 11.3 thousand, hemoglobin 14.4, hematocrit 45, platelet count 297,000. Chemistry revealed sodium of 146, potassium 4.9, chloride 110, CO2 of 24, BUN 63, creatinine 2, glucose 151. Liver enzymes are elevated. Creatinine kinase is elevated as well at 874. IMPRESSION: 1. Large left subacute infarct in the left middle cerebral artery that resulted in right hemiparesis and aphasia with right hemisensory deficits. 2. Multiple risk factors include atrial fibrillation, hypertension, hyperlipidemia and possible diabetes mellitus. 3. Chronic kidney disease and dehydration, leukocytosis, rule out systemic infections. RECOMMENDATIONS: 1. Continue with current management initiated by Dr. Wells/Dr. Breaux. 2. PT/OT and speech therapy as needed. LORETTA/ANTHONY DR: LORETTA/debra TID: [id number]
[2021-07-30] MEDS: METOPROLOL TART IMMED RELEASE 50 MG TABLET PO SCH ×2 (10:38→21:35)
[2021-07-30] MEDS: LOSARTAN 50 MG TABLET. PO SCH (10:38)
[2021-07-30] MEDS: APIXABAN 5 MG TABLET. PO SCH ×2 (10:38→21:35)
[2021-07-30] MEDS: DOCUSATE SODIUM 100 MG CAPSULE PO SCH (10:38)
[2021-07-30] MEDS: predniSONE 10 MG TABLET. PO SCH (10:40)
[2021-07-30] MEDS: ASPIRIN CHEWABLE 81 MG TABLET. PO SCH (10:40)
[2021-07-30] MEDS: amLODIPine BESYLATE 10 MG TABLET PO SCH (10:40)
[2021-07-30] MEDS: BRIMONIDINE 0.2% OPHTH SOLUTION 5ML BOTTLE. OU SCH ×2 (10:41→21:36)
[2021-07-30 11:49] VITALS: BP 114/57
--- NOTE | 2021-07-30 13:28 | DISCH ---
DISCHARGE ORDERS DISCHARGE DATE: Jul 30, 2021 FINAL DIAGNOSIS RIGHT SIDED HEMIPLEGIA HYPERTENSION APHASIA DYSPHAGIA CONDITION AT DISCHARGE: Stable Code Status: DNR/DNI SNF STAY <30 DAYS: Yes POST DISCHARGE ORDERS: ACTIVITY ORDERS: No restrictions, Activity as tolerated DIET AFTER DISCHARGE: ADA DISCHARGE MEDICATIONS: Home Meds Reported Medications Prednisone (PREDNISONE) 10 Mg Tablet, 10 MG PO DAILY for ., TAB 07/27/21 Metoprolol Tartrate (METOPROLOL TARTRATE) 50 Mg Tablet, 50 MG PO BID for TACHYCARDIA, #30 TAB 0 Refills 07/27/21 Lidocaine (Lidocaine PATCH ) 1 Each Adh..patch, 1 EACH TP DAILY for FOR LOCAL PAIN, PATCH REMOVE AFTER 12 HOURS 07/27/21 Insulin Detemir (LEVEMIR) 100 Unit/1 Ml Vial, 12 UNIT SQ QHS PRN for ., EACH 07/27/21 Dorzolamide Hcl/Timolol Maleat (DORZOLAMIDE-TIMOLOL EYE DROPS) 10 Ml Drops, 1 DROP RIGHTEYE BID PRN for ., #10 ML 0 Refills 07/27/21 Docusate Sodium (DOCUSATE SODIUM) 100 Mg Capsule, 1 CAP PO DAILY for constipation for 30 Days, #30 CAP 0 Refills 07/27/21 Brimonidine Tartrate (BRIMONIDINE TARTRATE) 5 Ml Drops, 1 DROP RIGHTEYE BID for DRYNESS, #10 ML 0 Refills 07/27/21 Atorvastatin Calcium (ATORVASTATIN CALCIUM) 80 Mg Tablet, 80 MG PO DAILY PRN for GI SYMPTOMS, #30 TAB 0 Refills 07/27/21 Aspirin (ASPIRIN) 81 Mg Tab.chew, 81 MG PO DAILY for BLOOD THINNER, TAB 07/27/21 Apixaban (ELIQUIS) 5 Mg Tablet, 5 MG PO BID for ANTICOAGULANT, TAB 07/27/21 Multivitamin (MULTI-VITAMIN DAILY) 1 Each Tablet, 1 EACH PO 05/21/14 Glucosamine Hcl (GLUCOSAMINE HCL) 500 Mg Tablet, 500 MG PO 05/21/14 Indomethacin (INDOMETHACIN) 75 Mg Capsule.er, 1 CAP PO DAILY, #30 CAP 05/21/14 Aspirin (ASPIRIN) 81 Mg Tab.chew, 1 TAB PO DAILY, #30 TAB 3 Refills 05/21/14 Discontinued Reported Medications Levofloxacin (LEVOFLOXACIN) 750 Mg Tablet, 750 MG PO DAILY for ., TAB 07/27/21 Amlodipine/Valsartan (Amlodipine-Valsartan 10-160 mg) 1 Each Tablet, 1 TAB PO DAILY for HTN for 30 Days, #30 TAB 0 Refills 07/27/21 Lisinopril (LISINOPRIL) 40 Mg Tablet, 1 TAB PO DAILY, #30 TAB 5 Refills 05/21/14 MARTIN SEPULVEDA MD Jul 30, 2021 13:28
[2021-07-30 15:00] VITALS: BP 120/62
[2021-07-30 20:06] VITALS: BP 106/71
[2021-07-30] MEDS: METOCLOPRAMIDE HCL 10 MG/10 ML SOLUTION. PEG SCH (21:36)
[2021-07-31 06:06] VITALS: BP 125/73
[2021-07-31] MEDS: LOSARTAN 50 MG TABLET. PO SCH (08:28)
[2021-07-31] MEDS: APIXABAN 5 MG TABLET. PO SCH (08:28)
[2021-07-31] MEDS: DOCUSATE SODIUM 100 MG CAPSULE PO SCH (08:29)
[2021-07-31] MEDS: predniSONE 10 MG TABLET. PO SCH (08:29)
[2021-07-31] MEDS: METOPROLOL TART IMMED RELEASE 50 MG TABLET PO SCH (08:29)
[2021-07-31] MEDS: amLODIPine BESYLATE 10 MG TABLET PO SCH (08:30)
[2021-07-31] MEDS: ASPIRIN CHEWABLE 81 MG TABLET. PO SCH (08:30)
[2021-07-31] MEDS: BRIMONIDINE 0.2% OPHTH SOLUTION 5ML BOTTLE. OU SCH (08:31)
[2021-07-31] MEDS: METOCLOPRAMIDE HCL 10 MG/10 ML SOLUTION. PEG SCH ×3 (08:31→16:30)
[2021-07-31] MEDS: LIDOCAINE (700MG/PATCH) PATCH. TP SCH (08:32)
[2021-07-31] MEDS ORDERED: LACTOBACILLUS RHAMNOSUS GG 1 CAPSULE. PO SCH (09:00)
[2021-07-31] MEDS ORDERED: oxyCODONE/APAP 5/325 1 TAB TABLET PO PRN (09:15)
[2021-07-31 11:00] VITALS: BP 123/76
[2021-07-31 12:00] VITALS: BP 127/51
[2021-07-31] MEDS ORDERED: LIDOCAINE 2% JELLY 6ML IN APPLICATOR. MM ONE (13:45)
--- NOTE | 2021-07-31 14:56 | RAD ---
Single view of the chest. 07/31/2021 2:11 PM Indication: Reason: peg tube placement / Spl. Instructions: / History: Comparison: CT of the abdomen and pelvis July 29, 2021 Findings: Contrast is seen within a gastrostomy 2, as well as in the stomach. Bowel gas pattern is no nobstructive. Bladder stone projects over the inferior pelvis. This may be external to the patient. N o acute osseous changes are seen otherwise. IMPRESSION: 1.Gastrostomy tube and contrast within the stomach. 2. Bladder still projects over the inferior pelvis. Electronically signed by: Philippe Mariscal MD (07/31/2021 2:54 PM) [id number]
[2021-07-31] MEDS ORDERED: LIDOCAINE 1% PF 30 ML VIAL. INJ ONE (16:30)
--- NOTE | 2021-07-31 20:55 | PN ---
SUBJECTIVE: The patient continues to be aphasic; however, he pulled out his feeding tube and refused to have it again. Otherwise, he denies any new neurological complaints. OBJECTIVE: GENERAL: Well-developed, well-nourished -Citizen Of [place] male not in any acute distress. VITAL SIGNS: Blood pressure 127/51, respiratory rate 20, pulse is 66 and regular, temperature 97.8, oxygen 96% on room air. HEENT: Normocephalic, atraumatic, otherwise unremarkable. NECK: Supple, negative for carotid bruit, lymphadenopathy or thyromegaly. LUNGS: Clear to A and P. CARDIOVASCULAR: Regular rate and rhythm, normal S1, S2. There is no S3, S4 or murmur. ABDOMEN: Soft. Bowel sounds positive. EXTREMITIES: Negative for cyanosis, clubbing or pedal edema. NEUROLOGIC: Mental Status: The patient is aphasic, but he follows one-step commands. Cranial nerves are grossly intact. Motor examination revealed right hemiparesis. Sensory examination revealed diminished pinprick and light touch senses throughout over the right upper and lower extremities. Deep tendon reflexes were symmetric and hypoactive with absent Achilles responses. Gait not tested. IMPRESSION: 1. Status post subacute infarct in the left MCA distributions resulted in aphasia and right hemiparesis and hemisensory deficits. 2. Multiple risk factors including hyperglycemia, hypertension, hyperlipidemia and atrial fibrillation. RECOMMENDATIONS: 1. We will continue with current management initiated by Dr. Breaux. 2. The patient is going to be discharged to [facility] today. We will continue with current home medications. LORETTA/MARILYN DR: LORETTA/debra TID: [id number]
== END 2021-07-31 19:04 | DRG 64 ==
LOC: ER 07:18 → ER HOLD 10:40 → 1 SOUTH 11:58
PROVIDERS: ADMIT Hospitalist; ATTEND Hospitalist
DX: I63.512 Cerebral infarction due to unspecified occlusion or stenosis of left middle cerebral artery (principal); I60.9 Nontraumatic subarachnoid hemorrhage, unspecified; E43 Unspecified severe protein-calorie malnutrition; I69.351 Hemiplegia and hemiparesis following cerebral infarction affecting right dominant side; I69.320 Aphasia following cerebral infarction; D72.829 Elevated white blood cell count, unspecified; E04.2 Nontoxic multinodular goiter; E78.5 Hyperlipidemia, unspecified; E86.0 Dehydration; G93.89 Other specified disorders of brain; I12.9 Hypertensive chronic kidney disease with stage 1 through stage 4 chronic kidney disease, or unspecified chronic kidney disease; I48.91 Unspecified atrial fibrillation; K57.90 Diverticulosis of intestine, part unspecified, without perforation or abscess without bleeding; N18.30 Chronic kidney disease, stage 3 unspecified; N20.0 Calculus of kidney; R13.10 Dysphagia, unspecified; K21.9 Gastro-esophageal reflux disease without esophagitis; Z66 Do not resuscitate
CPT/HCPCS: 36415; 70450; 70496; 70498; 71045; 74018; 74176; 80048; 80053; 82550; 82947; 83690; 83735; 83880; 84484; 85007; 85025; 85027; 85610; 85730; 87428; 93005; J3010; J7512; Q9967; U0003; 92610; 97530; 99285-25; J7030

== ENCOUNTER 2021-08-15 17:48 | Emergency (ER) | payer MEDICARE, BC ==
[~2021-08-15] VITALS: Ht 177.8 cm; Wt 77.4 kg
[~2021-08-15 17:48] MED LIST changes: +AMLO-308 PO; +APIX5TAB3 PO; +ATORVASTATIN CA80 MG PO; +BRIM5DRO4 RIGHTEYE; +DOCU100C28 PO; +DORZ10DR27 RIGHTEYE; +INSU100V13 SQ; +LEVO750T5 PO; +LIDO700A21 TP; +METO50TA6 PO; +PRED-220 PO
--- NOTE | 2021-08-15 19:26 | RAD ---
CT head without contrast dated 08/15/2021 7:21 PM Comparison: 07/27/2021 CLINICAL INDICATION: Seizure. History of stroke TECHNIQUE: Contiguous axial imaging of the head was performed from skull base to vertex. One or more of the following individualized dose reduction techniques were utilized for this examinat ion: 1. Automated exposure control 2. Adjustment of the mA and/or kV according to patient size 3. Use of iterative reconstruction technique. FINDINGS: Ventricles and sulci are mildly prominent for age. No midline shift or mass effect. There is a large heterogeneous zone of low density in the MCA distribution on the left that has evolved compared to th e prior study. No hemorrhage or extra-axial collection. Mild patchy low density in the deep/subcortic al periventricular white matter. Posterior fossa and brainstem unremarkable. Visualized paranasal sinuses and mastoid air cells are clear. No apparent calvarial abnormality. IMPRESSION: 1. No evidence of acute intracranial hemorrhage or mass. 2. Interval evolution of MCA distribution infarct on the left. 3. Mild to moderate chronic small vessel ischemic changes and atrophy. Electronically signed by: Edy Lin MD (08/15/2021 7:23 PM) [id number]
--- NOTE | 2021-08-15 19:38 | PHYS DOC ---
Past History Past Medical History: Bronchitis Additional Past Medical Histor: Stroke 06/23/2021 Past Surgical History: Other Additional Past Surgical Histo: Thrombectomy/craniotomy, PEG tube placement Alcohol Use: None General Adult EDM: Chief Complaint: SEIZURE HPI: HPI: 75-year-old male presents via EMS with seizure. History comes from EMS reports. The patient had a recent CVA and was in a rehab facility. He was transferred to another facility 1 or 2 days ago. The patient has a PEG feeding tube. He was getting ready to get the feeding. He gets very anxious when they use his PEG tube. He was given half milligram of Ativan. As they started the feeding, the patient had a "2-minute seizure". The patient appears to be back baseline on arrival to the ER. No reported seizure history, but the patient is on Keppra 500 mg twice daily. The patient is unable to speak due to the CVA. He is able to nod. Denies any pain at this time. Review of Systems: Review of Systems: Unable to perform due to the patient's inability to clearly communicate Allergies: Allergies: Allergies Coded Allergies Type Severity Reaction Last Updated Verified Penicillins Allergy Intermediate 05/21/14 Yes naproxen Allergy Mild Unknown 05/21/14 Yes Physical Exam: PE: Constitutional: Well developed, well nourished, no acute distress, non-toxic appearance. [] HENT: Normocephalic, atraumatic, bilateral external ears normal, oropharynx moist, no oral exudates, nose normal. [] Eyes: PERRLA, EOMI, conjunctiva normal, no discharge. [] Neck: Normal range of motion, no tenderness, supple, no stridor. [] Cardiovascular: Heart rate 98, irregular rhythm, no murmur [] Lungs & Thorax: Bilateral breath sounds clear to auscultation [] Abdomen: PEG tube in place. Bowel sounds normal, soft, no tenderness, no masses, no pulsatile masses. [] Skin: Warm, dry, no erythema, no rash. [] Back: No tenderness, no CVA tenderness. [] Extremities: No tenderness, no cyanosis, no clubbing, ROM intact, no edema. [] Neurologic: Alert, right-sided weakness, normal sensory function. [] [] Current Patient Data: Vital Signs: Vital Signs Date Time Temp Pulse Resp B/P (MAP) Pulse Ox O2 Delivery O2 Flow Rate FiO2 08/15/21 19:18 98.1 90 24 142/69 (93) 100 Room Air EKG: EKG: [] Radiology/Procedures: Radiology/Procedures: [] Impressions: CT head without contrast dated 08/15/2021 7:21 PM Comparison: 07/27/2021 CLINICAL INDICATION: Seizure. History of stroke TECHNIQUE: Contiguous axial imaging of the head was performed from skull base to vertex. One or more of the following individualized dose reduction techniques were utilized for this examination: 1. Automated exposure control 2. Adjustment of the mA and/or kV according to patient size 3. Use of iterative reconstruction technique. FINDINGS: Ventricles and sulci are mildly prominent for age. No midline shift or mass effect. There is a large heterogeneous zone of low density in the MCA distribution on the left that has evolved compared to the prior study. No hemorrhage or extra-axial collection. Mild patchy low density in the deep/subcortical periventricular white matter. Posterior fossa and brainstem u nremarkable. Visualized paranasal sinuses and mastoid air cells are clear. No apparent calvarial abnormality. IMPRESSION: 1. No evidence of acute intracranial hemorrhage or mass. 2. Interval evolution of MCA distribution infarct on the left. 3. Mild to moderate chronic small vessel ischemic changes and atrophy. Electronically signed by: Edy Lin MD (08/15/2021 7:23 PM) [facility] DICTATED AND SIGNED BY: EDY LIN MD DATE: 08/15/211920 CC: MIGUELINA ARAUJO DO; AIDA CASILLAS PA ~MTH0 0 Heart Score: C/O Chest Pain: N/A Risk Factors: Risk Factors: DM, Current or recent (<one month) smoker, HTN, HLP, family history of CAD, obesity. Risk Scores: Score 0 - 3: 2.5% MACE over next 6 weeks - Discharge Home Score 4 - 6: 20.3% MACE over next 6 weeks - Admit for Clinical Observation Score 7 - 10: 72.7% MACE over next 6 weeks - Early Invasive Strategies Course & Med Decision Making: Course & Med Decision Making Pertinent Labs and Imaging studies reviewed. (See chart for details) Head CT is negative for acute findings. See official read for old findings. The patient's labs are similar to previous. He has a mild anemia that is decreased from his last CBC. Creatinine is similar. I cannot be sure if the patient had a seizure or not. He is already on medication and we have not identified any new cause for concern. The patient is stable to return to his care facility at this time. [] Dragon Disclaimer: Dragon Disclaimer: This electronic medical record was generated, in whole or in part, using a voice recognition dictation system. Departure Departure: Impression: Primary Impression: Seizure Disposition: HOME / SELF CARE / HOMELESS Condition: STABLE Referrals: AIDA CASILLAS (PCP) Patient Instructions: Seizure, Adult VANMIGUELINA DO Aug 15, 2021 19:38
[2021-08-15 21:45] LABS: BASO % 0 % (0-3); EOS # 0.1 x10^3/uL (0.0-0.7); EOS % 1 % (0-3); HEMOGLOBIN 12.4 g/dL (13.0-17.5); LYMPH # 1.2 x10^3/uL (1.0-4.8); LYMPH % 21 % (24-48); MEAN CORPUSCULAR HEMOGLOBIN 30 pg (25-35); MEAN CORPUSCULAR HGB CONC 33 g/dL (31-37); MEAN CORPUSCULAR VOLUME 91 fL (79-100); MONO # 0.6 x10^3/uL (0.0-1.1); MONO % 10 % (0-9); NEUT % 68 % (31-73); PLATELET COUNT 179 x10^3/uL (140-400); RED CELL DISTRIBUTION WIDTH 15.8 % (11.5-14.5); WHITE BLOOD COUNT 5.9 x10^3/uL (4.0-11.0)
[2021-08-15 21:52] LABS: CALCIUM 8.7 mg/dL (8.5-10.1); CREATININE 1.6 mg/dL (0.7-1.3); GFR 51.2
[2021-08-15 21:58] LABS: ALBUMIN 3.1 g/dL (3.4-5.0); TOTAL BILIRUBIN 0.9 mg/dL (0.2-1.0); TOTAL PROTEIN 6.3 g/dL (6.4-8.2)
[2021-08-15 22:49] VITALS: BP 155/96
--- NOTE | 2021-08-16 03:50 | EKG ---
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
== END 2021-08-16 04:45 | disposition home or self-care (01) ==
LOC: ER 17:48
DX: R56.9 Unspecified convulsions (principal); Z86.73 Personal history of transient ischemic attack (TIA), and cerebral infarction without residual deficits; Z88.0 Allergy status to penicillin; Z88.6 Allergy status to analgesic agent
CPT/HCPCS: 36415; 70450; 80053; 83735; 84484; 85025; 93005; 96372; 99285; J3010